=== PATIENT | male | born 1975 | race Caucasian/White ===

== ENCOUNTER 2020-08-22 16:48 | Observation (INO) | payer MEDICAID, OTHER ==
[2020-08-22] MEDS ORDERED: Aspirin Chewable 81 MG TAB ONE (17:18)
[2020-08-22] MEDS ORDERED: Nitroglycerin 2% Ointment 1 INCH/1 GM Packet ONE (17:19)
[2020-08-22 17:38] LABS: #Lymphocytes 1.1 thou/uL (1.20-3.40); #Monocytes 0.6 thou/uL (0.11-0.59); %Basophils 0.3 % (0.0-1.0); %Eosinophils 0.2 % (0.0-10.0); %Lymphocytes 8.8 % (21.0-51.0); %Monocytes 4.7 % (0.0-10.0); %Neutrophils 86.1 % (42.0-75.0); Hemoglobin 16.1 g/dL (14.0-18.0); Mean Corpuscular HGB CONC 35.3 g/dL (32.0-36.0); Mean Corpuscular Hemoglobin 31.1 pg (27.0-31.0); Mean Platelet Volume 7.9 fL (7.4-10.4); Platelet Count 330 thou/uL (130-400); RBC Distribution Width 12.2 % (11.5-14.5); White Blood Cell (WBC) Count 12.8 thou/uL (4.8-10.8)
[2020-08-22 17:57] LABS: ALT (SGPT) 60 U/L (8-55); AST (SGOT) 25 U/L (5-34); Albumin 4.8 g/dL (3.5-5.0); Alkaline Phosphatase 80 U/L (40-110); Anion Gap 17 mmol/L (10-20); BUN (Urea Nitrogen) 12 mg/dL (8.9-20.6); Bilirubin, Total 0.6 mg/dL (0.2-1.2); Calc. Creatinine Clearance 0 mL/min (70-130); Calcium 9.2 mg/dL (7.8-10.44); Carbon Dioxide 21 mmol/L (22-29); Chloride 102 mmol/L (98-107); Globulin 3.3 g/dL (2.4-3.5); Glucose 121 mg/dL (70-105); Lipase 19 U/L (8-78); Potassium 3.4 mmol/L (3.5-5.1); Protein, Total 8.1 g/dL (6.0-8.3); Sodium 137 mmol/L (136-145)
--- NOTE | 2020-08-22 17:57 | RAD ---
PORTABLE CHEST: History: Chest pain FINDINGS: Heart size and mediastinum are within normal limits. Lungs are clear of any infiltrative process. No bony findings. IMPRESSION: No active intrathoracic disease. POS: ALEX
[2020-08-22] MEDS ORDERED: Lorazepam 2 MG/ML VIAL ONE (18:37)
--- NOTE | 2020-08-22 19:21 | PDOC.HHP ---
Hospitalist HPI - History of Present Illness Chest pain History of Present Illness: Mr. Cannon is a 44-year-old male with past medical history of hypertension, anxiety and panic disorder who presents to the emergency room for evaluation of chest pain. Patient reports that approximately 5 days ago he picked up his prescription for lisinopril and found that the pills manufactured by different company. Patient states that since taking that pill he has had palpitations with elevated heart rate and high blood pressure. Patient reports that he will lay down to sleep and is unable to sleep because his heart is racing in his ears. Patient reports that yesterday he developed intermittent chest pain and pressure which felt like a tightness above his left chest extending down into his arm. Patient reports that the pain lasted seconds long and that he has not had pain like this in the past. Patient reports he has a history of anxiety disorder and his usual techniques to calm his anxiety have not been effective and that this pain feels different than a panic attack. Patient denies shortness of breath, headache, visual changes, dizziness. He denies numbness weakness or paresthesias. He denies abdominal pain, N/V/D, melena or hematochezia. Patient has a family history of coronary artery disease with his father who had an IL at age 65 and his grandfather who had a CABG at the age of 55. He is a non-smoker. In emergency room initial vital signs 136/89, 94, 18, 98% on room air. EKG showed normal sinus rhythm with nonspecific changes T wave flattening in V5 V6 with no ST changes. Chest x-ray with no acute findings. Initial troponin 0 0.010. BNP 10.0. BUN/CR 12/1.12. Sodium 137, potassium 3.4. H/H 16.1/45.7. White blood cell count 12.8. Patient received Ativan, Nitropaste, aspirin in the emergency room. Admitted to hospital service for further evaluation of his chest pain. Hospitalist ROS - Review of Systems Constitutional: denies: fever, chills, sweats, weakness, malaise, other Eyes: denies: pain, vision change, conjunctivae inflammation, eyelid inflammation, redness, other ENT: denies: ear pain, ear discharge, nose pain, nose discharge, nose congestio n, mouth pain, mouth swelling, throat pain, throat swelling, other Respiratory: denies: cough, dry, shortness of breath, hemoptysis, SOB with excertion, pleuritic pain, sputum, wheezing, other Cardiovascular: reports: chest pain, palpitations. denies: orthopnea, paroxysmal noc. dyspnea, edema, light headedness, other Gastrointestinal: denies: nausea, vomiting, abdominal pain, diarrhea, constipation, melena, hematochezia, other Genitourinary: denies: dysuria, frequency, incontinence, hematuria, retention, other Musculoskeletal: denies: neck pain, shoulder pain, arm pain, back pain, hand pain, leg pain, foot pain, other Skin: denies: rash, lesions, quoc, bruising, other Neurological: denies: weakness, numbness, incoordination, change in speech, confusion, seizures, other - Medication Medications: Home medications include Lisinopril Allergy to opioid medications Hospitalist History - Past Medical History Other Medical History: Physical history includes Hypertension Anxiety and panic disorder - Past Surgical History Other Surgical History: Past surgical history includes Appendectomy Orthopedic surgery to the right arm - Family History Other Family History: Family history significant for coronary artery disease in his father with an IL at age 65 and his grandfather with a CABG at age 55. - Social History Smoking Status: Never smoker Alcohol: reports: None Drugs: reports: marijuana (Rare use of marijuana, last use 3 months ago) Living Situation: With Family Activity level: independent ambulation - Exam General Appearance: NAD, awake alert General - other findings: Anxious Eye: PERRL, anicteric sclera ENT: normocephalic atraumatic, no oropharyngeal lesions, moist mucosa Neck: supple, symmetric, no JVD, no thyromegaly, no lymphadenopathy, no carotid bruit Heart: RRR, no murmur, no gallops, no rubs, normal peripheral pulses Respiratory: CTAB, no wheezes, no rales, no ronchi, normal chest expansion, no tachypnea, normal percussion Gastrointestinal: soft, non-tender, non-distended, normal bowel sounds, no palpable masses, no hepatomegaly, no splenomegaly, no bruit Extremities: no cyanosis, no clubbing, no edema Skin: normal turgor, no lesions, no rashes Neurological: cranial nerve grossly intact, normal sensation to touch, no weakness, no focal deficits, no new deficit Musculoskeletal: normal tone, normal strength, no muscle wasting Psychiatric: normal affect, normal behavior, A&O x 3 Hospitalist Results - Labs Result Diagrams: 08/23/20 04:01 08/23/20 04:01 Lab results: WBC 12.8 thou/uL (4.8-10.8) H 08/22/20 17:06 Hgb 16.1 g/dL (14.0-18.0) 08/22/20 17:06 Hct 45.7 % (42.0-52.0) 08/22/20 17:06 MCV 88.0 fL (78.0-98.0) 08/22/20 17:06 Plt Count 330 thou/uL (130-400) 08/22/20 17:06 Neutrophils % 86.1 % (42.0-75.0) H 08/22/20 17:06 Sodium 137 mmol/L (136-145) 08/22/20 17:06 Potassium 3.4 mmol/L (3.5-5.1) L 08/22/20 17:06 Chloride 102 mmol/L (98-107) 08/22/20 17:06 Carbon Dioxide 21 mmol/L (22-29) L 08/22/20 17:06 BUN 12 mg/dL (8.9-20.6) 08/22/20 17:06 Creatinine 1.12 mg/dL (0.7-1.3) 08/22/20 17:06 Glucose 121 mg/dL (70-105) H 08/22/20 17:06 Calcium 9.2 mg/dL (7.8-10.44) 08/22/20 17:06 Total Bilirubin 0.6 mg/dL (0.2-1.2) 08/22/20 17:06 AST 25 U/L (5-34) 08/22/20 17:06 ALT 60 U/L (8-55) H 08/22/20 17:06 Alkaline Phosphatase 80 U/L (40-110) 08/22/20 17:06 Troponin I Less than 0.010 ng/mL (< 0.028) 08/22/20 17:06 B-Natriuretic Peptide Less than 10.0 pg/mL (0-100) 08/22/20 17:06 Serum Total Protein 8.1 g/dL (6.0-8.3) 08/22/20 17:06 Albumin 4.8 g/dL (3.5-5.0) 08/22/20 17:06 Lipase 19 U/L (8-78) 08/22/20 17:06 Hospitalist H&P A/P - Plan Plan: Chest pain 44-year-old male with past medical history of hypertension, anxiety panic disorder presents with chest pain and palpitations. EKG with no ST changes, but nonspecific T wave flattening. Initial troponin 0 0.010. Chest x-ray no acute findings. Patient does have a family history of coronary artery disease. Patient received 325 mg of aspirin in the emergency room as well as Nitropaste. Will admit patient for telemetry monitoring and stress test in morning as long as troponins remain low. Plan Aspirin Telemetry monitoring, trend troponin TSH, magnesium, calcium N.p.o. at midnight for stress test Hypokalemia Potassium 3.4 on admission. Will replete and monitor as necessary. Hypertension Patient on lisinopril. We will continue home dose. Anxiety and panic disorder Patient has a history significant for anxiety and panic disorder. Suspect that patient's chest pain may be related to this, however will treat and evaluate as above. Patient is not currently on any anxiety medication and does report that this chest pain does feel different than his typical anxiety symptoms. Plan Ativan as needed DVT prophylaxisSCDs Full codeMDM is patient's Case discussed with attending physician, Dr. Pratt
[2020-08-22] MEDS ORDERED: Lorazepam 1 MG TAB PO PRN (19:39)
[2020-08-22] MEDS ORDERED: Aspirin 325 MG TAB PO SCH (19:45)
[2020-08-22] MEDS ORDERED: Potassium Chloride 20 MEQ TAB PO SCH (19:45)
[2020-08-22] MEDS ORDERED: Acetaminophen 325 MG TAB PO PRN (19:51)
[2020-08-22 19:57] LABS: Troponin I 0.018 ng/mL (< 0.028)
[2020-08-22 20:25] LABS: Hemoglobin A1c 5.3 % (4.0-6.0)
[2020-08-22 20:27] LABS: Calcium 8.6 mg/dL (7.8-10.44); Magnesium 2.2 mg/dL (1.6-2.6)
[2020-08-22] MEDS: Nitroglycerin 2% Ointment 1 INCH/1 GM Packet TOP SCH (21:03)
[2020-08-22 22:06] VITALS: BMI 28.8
[2020-08-22 23:39] LABS: Troponin I 0.027 ng/mL (< 0.028)
[2020-08-23 02:46] LABS: SARS-CoV-2 MS2 Positive; SARS-CoV-2 N Gene Negative; SARS-CoV-2 S Gene Negative; SARS-CoV-2 by NAA Not Detected (NotDetected); SARS-CoV-2 orf1ab Negative
[2020-08-23 05:19] LABS: #Eosinphils 0.1 thou/uL (0.0-0.7); #Lymphocytes 1.8 thou/uL (1.20-3.40); #Monocytes 0.9 thou/uL (0.11-0.59); #Neutrophils 8.8 thou/uL (1.40-6.50); %Basophils 0.3 % (0.0-1.0); %Eosinophils 0.6 % (0.0-10.0); %Lymphocytes 15.7 % (21.0-51.0); %Monocytes 7.5 % (0.0-10.0); %Neutrophils 75.9 % (42.0-75.0); Hemoglobin 14.3 g/dL (14.0-18.0); Mean Corpuscular HGB CONC 34.8 g/dL (32.0-36.0); Mean Corpuscular Hemoglobin 30.8 pg (27.0-31.0); Mean Corpuscular Volume 88.6 fL (78.0-98.0); Mean Platelet Volume 8.1 fL (7.4-10.4); Platelet Count 293 thou/uL (130-400); RBC Distribution Width 12.2 % (11.5-14.5); Red Blood Cell (RBC) Count 4.63 mill/uL (4.70-6.10); White Blood Cell (WBC) Count 11.6 thou/uL (4.8-10.8)
[2020-08-23 05:42] LABS: Anion Gap 15 mmol/L (10-20); BUN (Urea Nitrogen) 14 mg/dL (8.9-20.6); Calc. Creatinine Clearance 112 mL/min (70-130); Calcium 8.7 mg/dL (7.8-10.44); Carbon Dioxide 24 mmol/L (22-29); Cardiac Risk 5.4 (Less than 4.5); Chloride 103 mmol/L (98-107); Cholesterol 140 mg/dl (< 200 Desired); Glucose 93 mg/dL (70-105); HDL Cholesterol 26 mg/dL (>60 Neg Risk); LDL Cholesterol, Calculated 93 mg/dL; Sodium 138 mmol/L (136-145); Triglycerides 104 mg/dL (Less than 150)
[2020-08-23] MEDS: Nitroglycerin 2% Ointment 1 INCH/1 GM Packet TOP SCH ×2 (07:05→15:13)
[2020-08-23 07:19] VITALS: TEMP 98.4
[2020-08-23] MEDS ORDERED: Aspirin Chewable 81 MG TAB PO SCH (09:00)
[2020-08-23] MEDS ORDERED: Ketorolac Tromethamine 30 MG/ML VIAL IVP SCH (09:15)
--- NOTE | 2020-08-23 13:32 | NM ---
Radionucleotide stress and rest myocardial perfusion scan with CT attenuation correction and SPECT im aging Left ventricular wall motion evaluation and ejection fraction HISTORY: Chest pain. FINDINGS: Norberto protocol. Total test time 10:01. Homogeneous uptake of radiotracer throughout the left ventricular myocardium. No focal perfusion defe ct or reversibility. QGS analysis of gated SPECT images shows no focal wall motion abnormalities. TID 1.1. LHR 31%. Left ventricular ejection fraction calculated at 76%. IMPRESSION : No evidence of ischemia. Normal LVEF.
--- NOTE | 2020-08-23 14:20 | PDOC.DS.DS ---
Provider - Provider Date of Admission: 08/22/20 18:38 Date of Discharge: 08/23/20 Admitting Provider: Galina Pratt MD Primary Care Physician: Mt Wilson MD Course - Hospital Course Hospital Course: Discharge diagnosis: 1. Chest pain 2. Chest pain most likely secondary to musculoskeletal etiology Hospital course: Patient is a pleasant 39-year-old gentleman who was admitted to the hospital on August 22, 2020 for chest pain. Cardiac enzymes were normal. He had a nuclear stress test, which did not show any evidence of ischemia. Left ventricle ejection fraction was calculated at 76%. His chest pain resolved after he received Toradol. He is being discharged home in a stable condition. Pulmonary embolism was ruled out with a negative D-dimer prior to discharge. Many thanks for allowing me to participate in your patient's care. Please feel free to contact me with any questions or concerns. Discharge destination: Home - Labs Lab Results: 08/23/20 04:01 08/23/20 04:01 Abnormal Lab Results - Last 48 hrs 08/22/20 17:06: Potassium 3.4 L, Carbon Dioxide 21 L, ALT 60 H 08/22/20 17:06: WBC 12.8 H, MCH 31.1 H, Neutrophils % 86.1 H, Lymphocytes % 8.8 L, Neutrophils # 11.0 H, Lymphocytes # 1.1 L, Monocytes # 0.6 H 08/23/20 04:01: WBC 11.6 H, RBC 4.63 L, Hct 41.1 L, Neutrophils % 75.9 H, Lymphocytes % 15.7 L, Neutrophils # 8.8 H, Monocytes # 0.9 H - Physical Exam Vitals: Vital Signs (12 hours) Temp Pulse Resp BP Pulse Ox 08/23/20 07:15 98.4 F 61 16 167/81 H 97 08/23/20 03:21 98.8 F 65 18 129/69 99 Weight Weight 195 lb Physical Exam: The patient was seen and examined on the day of discharge. Patient denies chest pain or shortness of breath. Vital signs are stable. S1 and S2 are heard. Lungs are clear to auscultation bilaterally. Plan - Discharge Medications Home Medications: Medication Instructions Recorded Confirmed Type Lisinopril 20 mg PO DAILY 08/23/20 08/23/20 History Allergies: OPIATES Allergy (Uncoded 08/22/20 19:45) - Discharge Instructions Discharge Instructions:: Check your blood pressure and heart rate 3 times a day and shows readings to your primary care provider. - Follow up Plan Referrals: Mt Wilson MD [Primary Care Provider] - 3 Days (Please call the office to schedule a follow up appointment.) Disposition: HOME Quality - Care Measures CORE MEASURES:: N/A
[2020-08-23 15:41] VITALS: BP 140/71
[2020-08-24] MEDS ORDERED: Lisinopril 20 MG TAB PO SCH (09:00)
--- NOTE | 2020-08-28 10:08 | EKG ---
Test Reason : Blood Pressure : / mmHG Vent. Rate : 086 BPM Atrial Rate : 086 BPM P-R Int : 120 ms QRS Dur : 102 ms QT Int : 372 ms P-R-T Axes : 054 018 032 degrees QTc Int : 445 ms Normal sinus rhythm Nonspecific ST abnormality Abnormal ECG Confirmed by JAMES WAGNER, TROY Fitzpatrick ([id number]), acquisition editor ALEXANDRA العلي ([id number]) on 08/28/2020 10:07:50 AM Referred By: Confirmed By:TROY RAMIREZ MD
== END 2020-08-23 15:13 | disposition home or self-care (01) ==
LOC: ERS 16:48 → 2NO 18:38
PROVIDERS: ADMIT Internal Medicine; ATTEND Internal Medicine
DX: R07.89 Other chest pain (principal); I10 Essential (primary) hypertension; F41.0 Panic disorder [episodic paroxysmal anxiety]; F32.9 Major depressive disorder, single episode, unspecified; E87.6 Hypokalemia; Z79.899 Other long term (current) drug therapy; Z88.5 Allergy status to narcotic agent; Z20.822 Contact with and (suspected) exposure to COVID-19
CPT/HCPCS: 36415; 71045; 78452; 80048; 80053; 80061; 83036; 83690; 83735; 83880; 84443; 84484; 85025; 85379; 87635; 93005; 93010; 93017; 94760; 96374; A9500; G0378; J1885; J2060; U0003

== ENCOUNTER 2022-02-27 20:25 | Observation (INO) | payer OTHER ==
[2022-02-27 21:39] LABS: #Lymphocytes 1.5 thou/uL (1.20-3.40); #Monocytes 0.6 thou/uL (0.11-0.59); #Neutrophils 14.9 thou/uL (1.40-6.50); %Basophils 0.2 % (0.0-1.0); %Eosinophils 0.2 % (0.0-10.0); %Lymphocytes 8.6 % (21.0-51.0); %Monocytes 3.7 % (0.0-10.0); %Neutrophils 87.3 % (42.0-75.0); Hemoglobin 16.1 g/dL (14.0-18.0); Mean Corpuscular HGB CONC 32.9 g/dL (32.0-36.0); Mean Corpuscular Hemoglobin 30.5 pg (27.0-31.0); Mean Corpuscular Volume 92.8 fL (78.0-98.0); Mean Platelet Volume 8.5 fL (7.4-10.4); Platelet Count 283 thou/uL (130-400); RBC Distribution Width 13.1 % (11.5-14.5); Red Blood Cell (RBC) Count 5.26 mill/uL (4.70-6.10); White Blood Cell (WBC) Count 17.1 thou/uL (4.8-10.8)
[2022-02-27 22:02] LABS: ALT (SGPT) 36 U/L (8-55); AST (SGOT) 19 U/L (5-34); Albumin 4.9 g/dL (3.5-5.0); Alkaline Phosphatase 94 U/L (40-110); Anion Gap 17 mmol/L (10-20); BUN (Urea Nitrogen) 13 mg/dL (8.9-20.6); Bilirubin, Total 0.4 mg/dL (0.2-1.2); Calc. Creatinine Clearance 0 mL/min (70-130); Calcium 9.6 mg/dL (7.8-10.44); Carbon Dioxide 22 mmol/L (22-29); Chloride 104 mmol/L (98-107); Estimated GFR 86; Globulin 2.7 g/dL (2.4-3.5); Glucose 122 mg/dL (70-105); Lipase 24 U/L (8-78); Potassium 3.9 mmol/L (3.5-5.1); Protein, Total 7.6 g/dL (6.0-8.3); Sodium 139 mmol/L (136-145)
[2022-02-27] MEDS ORDERED: Aspirin Chewable 81 MG TAB ONE ×3 (22:12→22:13)
[2022-02-27] MEDS ORDERED: Acetaminophen 325 MG TAB PO PRN (23:01)
[2022-02-27] MEDS ORDERED: Ondansetron ODT 4 MG TAB PO PRN (23:01)
[2022-02-27] MEDS ORDERED: Nitroglycerin 0.4 MG TAB (25 Tab Bottle) SL PRN (23:12)
[2022-02-27] MEDS ORDERED: Aspirin 325 MG TAB PO SCH (23:15)
[2022-02-27 23:41] LABS: Hemoglobin A1c 5.3 % (4.0-6.0)
[2022-02-28 02:04] LABS: Troponin I Less than 0.010 ng/mL (< 0.028)
[2022-02-28 05:47] LABS: Troponin I Less than 0.010 ng/mL (< 0.028)
[2022-02-28 07:26] LABS: Cardiac Risk 5.1 (Less than 4.5)
[2022-02-28 07:59] VITALS: BMI 29.2
[2022-02-28] MEDS ORDERED: Aspirin Chewable 81 MG TAB PO SCH (09:00)
[2022-02-28] MEDS ORDERED: Lisinopril 20 MG TAB PO SCH (09:00)
[2022-02-28] MEDS ORDERED: Midazolam HCl 2 mg/2 ml Vial SLOW IVP SCH (09:15)
[2022-02-28 16:51] VITALS: BP 158/70; TEMP 97.3
== END 2022-02-28 16:45 | disposition home or self-care (01) ==
LOC: ERS 20:25 → ERHOLD 22:41 → 2SW 02-28 07:51
PROVIDERS: ADMIT Student in an Organized Health Care Education/Training Program; ATTEND Student in an Organized Health Care Education/Training Program
DX: I20.8 Other forms of angina pectoris (principal); I10 Essential (primary) hypertension; Z79.899 Other long term (current) drug therapy; Z82.49 Family history of ischemic heart disease and other diseases of the circulatory system; Z88.5 Allergy status to narcotic agent
CPT/HCPCS: 36415; 71045; 78452; 80053; 80061; 83036; 83690; 83880; 84443; 84484; 85025; 93005; 93017; A9500; G0378; U0003; U0005

== ENCOUNTER 2023-06-22 15:06 | Inpatient (IN) | payer OTHER, SELFPAY ==
[2023-06-22 15:48] LABS: Bilirubin Negative (Negative); Blood, Urine Negative (Negative); Clarity Clear (Clear); Glucose, Urine (Dipstick) Normal (Negative); Ketone, Urine Negative (Negative); Leukocyte Negative Leu/uL (Negative); Nitrite Negative (Negative); Protein, Urine (Dipstick) Negative (Neg-Trace); Specific Gravity, Urine 1.011 (1.002-1.036); Urobilinogen Normal mg/dL (Less than 2); pH, Urine 5.5 (5.0-9.0)
[2023-06-22] MEDS ORDERED: Ketorolac Tromethamine 30 MG/ML VIAL ONE (15:56)
[2023-06-22 16:01] LABS: Mucous/LPF 1+ LPF (<2+); RBC/HPF None Seen HPF (0-3); Squamous Epithelial 0-3 HPF (0-3)
[2023-06-22 16:02] LABS: Urine Culture Reflex No No
[2023-06-22 16:32] LABS: #Monocytes 0.6 thou/uL (0.11-0.59); #Neutrophils 10.6 thou/uL (1.40-6.50); %Basophils 0.3 % (0.0-1.0); %Eosinophils 0.1 % (0.0-10.0); %Lymphocytes 9.8 % (21.0-51.0); %Neutrophils 84.5 % (42.0-75.0); Hematocrit 42.7 % (42.0-52.0); Hemoglobin 15.7 g/dL (14.0-18.0); Mean Corpuscular HGB CONC 36.8 g/dL (32.0-36.0); Mean Corpuscular Hemoglobin 30.5 pg (27.0-31.0); Mean Corpuscular Volume 82.9 fl (78.0-98.0); Mean Platelet Volume 10.7 fL (7.4-10.4); Platelet Count 312 10x3/uL (130-400); RBC Distribution Width 12.3 % (11.5-14.5); Red Blood Cell (RBC) Count 5.15 mill/uL (4.70-6.10); White Blood Cell (WBC) Count 12.5 10x3/uL (4.8-10.8)
[2023-06-22] MEDS ORDERED: Sodium Chloride 0.9% 100 ML ONE (16:40)
[2023-06-22] MEDS ORDERED: cefTRIAXone (ROCEPHIN) 2 GM VIAL ONE (16:40)
[2023-06-22 17:09] LABS: ALT (SGPT) 36 U/L (8-55); AST (SGOT) 17 U/L (5-34); Albumin 5.1 g/dL (3.5-5.0); Alkaline Phosphatase 78 U/L (40-110); Anion Gap 17 mmol/L (10-20); BUN (Urea Nitrogen) 10 mg/dL (8.9-20.6); Bilirubin, Total 0.7 mg/dL (0.2-1.2); Calc. Creatinine Clearance 0 mL/min (70-130); Calcium 9.4 mg/dL (7.8-10.44); Carbon Dioxide 17 mmol/L (22-29); Chloride 105 mmol/L (98-107); Estimated GFR 78; Globulin 2.3 g/dL (2.4-3.5); Glucose 122 mg/dL (70-105); Potassium 3.4 mmol/L (3.5-5.1); Protein, Total 7.4 g/dL (6.0-8.3); Sodium 136 mmol/L (136-145)
[2023-06-22] MEDS ORDERED: Ondansetron ODT 4 MG TAB PO PRN (17:22)
[2023-06-22] MEDS ORDERED: HYDROcodone/Acetaminophen 5/325 mg Tablet PO PRN (17:22)
[2023-06-22] MEDS ORDERED: Sodium Chloride 0.9% 1,000 ML IV SCH ×3 (17:30→19:55)
[2023-06-22] MEDS ORDERED: LORazepam 2 MG/ML SYR.(CARPUJECT) ONE (17:46)
[2023-06-22] MEDS ORDERED: Potassium Chloride 20 MEQ TAB PO SCH (18:15)
[2023-06-22 18:23] LABS: #Monocytes 0.7 thou/uL (0.11-0.59); #Neutrophils 10.3 thou/uL (1.40-6.50); %Basophils 0.3 % (0.0-1.0); %Lymphocytes 9.7 % (21.0-51.0); %Monocytes 5.4 % (0.0-10.0); %Neutrophils 84.2 % (42.0-75.0); Hemoglobin 13.3 g/dL (14.0-18.0); Mean Corpuscular HGB CONC 35.9 g/dL (32.0-36.0); Mean Corpuscular Hemoglobin 30.5 pg (27.0-31.0); Mean Corpuscular Volume 84.9 fl (78.0-98.0); Mean Platelet Volume 10.4 fL (7.4-10.4); Platelet Count 265 10x3/uL (130-400); RBC Distribution Width 12.3 % (11.5-14.5); Red Blood Cell (RBC) Count 4.36 mill/uL (4.70-6.10); White Blood Cell (WBC) Count 12.3 10x3/uL (4.8-10.8)
[2023-06-22 18:48] LABS: Magnesium 1.6 mg/dL (1.6-2.6)
[2023-06-22 18:52] LABS: ALT (SGPT) 30 U/L (8-55); AST (SGOT) 14 U/L (5-34); Albumin 4.2 g/dL (3.5-5.0); Alkaline Phosphatase 60 U/L (40-110); Anion Gap 15 mmol/L (10-20); BUN (Urea Nitrogen) 10 mg/dL (8.9-20.6); Bilirubin, Total 0.5 mg/dL (0.2-1.2); Calc. Creatinine Clearance 0 mL/min (70-130); Carbon Dioxide 18 mmol/L (22-29); Chloride 109 mmol/L (98-107); Estimated GFR 88; Globulin 1.7 g/dL (2.4-3.5); Glucose 94 mg/dL (70-105); Potassium 3.4 mmol/L (3.5-5.1); Protein, Total 5.9 g/dL (6.0-8.3); Sodium 139 mmol/L (136-145)
[2023-06-22 19:44] LABS: Lactic Acid 2.9 mmol/L (0.5-2.2)
[2023-06-22] MEDS ORDERED: Magnesium 2 GM/50 ML(in water) 2 GM in Premix 1 BAG IVPB SCH (20:00)
[2023-06-22 20:29] VITALS: BMI 29.3
[2023-06-22] MEDS ORDERED: Sodium Chloride 0.9% 500 ML IV SCH (20:30)
[2023-06-22] MEDS: Famotidine 20 MG TAB PO SCH (20:32)
[2023-06-22] MEDS ORDERED: Heparin 5,000 UNITS/ML VIAL SC SCH (21:00)
[2023-06-22] MEDS ORDERED: Lisinopril 20 MG TAB PO SCH (21:00)
[2023-06-22] MEDS ORDERED: hydrALAZINE 20 MG/ML VIAL SLOW IVP PRN (21:12)
[2023-06-22 21:33] LABS: Hemoglobin A1c 5.7 % (4.0-6.0)
[2023-06-22] MEDS: Sodium Chloride 0.9% 1,000 ML IV SCH (21:39)
[2023-06-23] MEDS: Ketorolac Tromethamine 30 MG/ML VIAL IVP PRN ×3 (02:16→23:46)
[2023-06-23] MEDS: Sodium Chloride 0.9% 1,000 ML IV SCH ×3 (05:59→17:59)
[2023-06-23 06:41] LABS: #Monocytes 0.5 thou/uL (0.11-0.59); #Neutrophils 3.7 thou/uL (1.40-6.50); %Basophils 0.6 % (0.0-1.0); %Eosinophils 0.6 % (0.0-10.0); %Lymphocytes 33.8 % (21.0-51.0); %Neutrophils 56.7 % (42.0-75.0); Hematocrit 36.3 % (42.0-52.0); Hemoglobin 12.4 g/dL (14.0-18.0); Mean Corpuscular HGB CONC 34.2 g/dL (32.0-36.0); Mean Corpuscular Hemoglobin 30.2 pg (27.0-31.0); Mean Platelet Volume 11.2 fL (7.4-10.4); Platelet Count 236 10x3/uL (130-400); RBC Distribution Width 12.8 % (11.5-14.5); Red Blood Cell (RBC) Count 4.11 mill/uL (4.70-6.10); White Blood Cell (WBC) Count 6.5 10x3/uL (4.8-10.8)
[2023-06-23 06:42] LABS: Mean Corpuscular Volume 88.3 fl (78.0-98.0)
[2023-06-23 07:19] LABS: ALT (SGPT) 21 U/L (8-55); AST (SGOT) 11 U/L (5-34); Albumin 3.8 g/dL (3.5-5.0); Alkaline Phosphatase 53 U/L (40-110); Anion Gap 10 mmol/L (10-20); BUN (Urea Nitrogen) 9 mg/dL (8.9-20.6); Bilirubin, Total 0.4 mg/dL (0.2-1.2); Calc. Creatinine Clearance 136 mL/min (70-130); Calcium 7.9 mg/dL (7.8-10.44); Carbon Dioxide 19 mmol/L (22-29); Chloride 115 mmol/L (98-107); Estimated GFR 107; Globulin 1.5 g/dL (2.4-3.5); Glucose 71 mg/dL (70-105); Protein, Total 5.3 g/dL (6.0-8.3); Sodium 140 mmol/L (136-145)
[2023-06-23] MEDS: Aspirin Chewable 81 MG TAB PO SCH (09:21)
[2023-06-23] MEDS: Heparin 5,000 UNITS/ML VIAL SC SCH ×2 (09:21→21:21)
[2023-06-23] MEDS: Famotidine 20 MG TAB PO SCH ×2 (09:21→21:00)
[2023-06-23 09:55] LABS: GC N.gonorrhoeae PCR,UrineVOID Not Detected (NotDetected)
[2023-06-23] MEDS ORDERED: cefTRIAXone\\ROCEPHIN 2 GM in Sodium Chloride 0.9% 100 ML IVPB SCH (16:00)
[2023-06-23] MEDS ORDERED: cefTRIAXone\\ROCEPHIN 1 GM in Sodium Chloride 0.9% 100 ML IVPB SCH (16:00)
[2023-06-23] MEDS: Acetaminophen 325 MG TAB PO PRN (16:08)
[2023-06-24] MEDS: Sodium Chloride 0.9% 1,000 ML IV SCH ×3 (01:38→17:24)
[2023-06-24 06:50] LABS: #Eosinphils 0.1 thou/uL (0.0-0.7); #Monocytes 0.3 thou/uL (0.11-0.59); #Neutrophils 2.5 thou/uL (1.40-6.50); %Basophils 0.9 % (0.0-1.0); %Eosinophils 1.1 % (0.0-10.0); %Lymphocytes 35.5 % (21.0-51.0); %Neutrophils 55.3 % (42.0-75.0); Hematocrit 35.5 % (42.0-52.0); Mean Corpuscular HGB CONC 33.8 g/dL (32.0-36.0); Mean Corpuscular Hemoglobin 30.2 pg (27.0-31.0); Mean Corpuscular Volume 89.4 fl (78.0-98.0); Platelet Count 222 10x3/uL (130-400); Red Blood Cell (RBC) Count 3.97 mill/uL (4.70-6.10); White Blood Cell (WBC) Count 4.5 10x3/uL (4.8-10.8)
[2023-06-24 07:14] LABS: Anion Gap 9 mmol/L (10-20); BUN (Urea Nitrogen) 6 mg/dL (8.9-20.6); Calc. Creatinine Clearance 146 mL/min (70-130); Calcium 8.4 mg/dL (7.8-10.44); Carbon Dioxide 21 mmol/L (22-29); Chloride 116 mmol/L (98-107); Estimated GFR 110; Glucose 81 mg/dL (70-105); Potassium 3.9 mmol/L (3.5-5.1); Sodium 142 mmol/L (136-145)
[2023-06-24] MEDS ORDERED: Ibuprofen 600 MG TAB PO PRN (09:31)
[2023-06-24] MEDS: Aspirin Chewable 81 MG TAB PO SCH (10:15)
[2023-06-24] MEDS: Famotidine 20 MG TAB PO SCH ×2 (10:15→20:12)
[2023-06-24] MEDS: Heparin 5,000 UNITS/ML VIAL SC SCH ×2 (10:15→19:49)
[2023-06-24] MEDS: Ketorolac Tromethamine 30 MG/ML VIAL IVP SCH ×3 (10:30→23:25)
[2023-06-24] MEDS: Cefepime 2 GM in Sodium Chloride 0.9% 100 ML IVPB SCH ×2 (14:00→23:25)
[2023-06-24] MEDS: Lorazepam 1 MG TAB PO PRN (23:25)
[2023-06-24] MEDS: Acetaminophen 325 MG TAB PO PRN (23:26)
[2023-06-25] MEDS: Sodium Chloride 0.9% 1,000 ML IV SCH ×3 (05:21→20:54)
[2023-06-25] MEDS: Ketorolac Tromethamine 30 MG/ML VIAL IVP SCH ×2 (05:21→12:02)
[2023-06-25] MEDS: Famotidine 20 MG TAB PO SCH ×2 (08:43→20:51)
[2023-06-25] MEDS: Aspirin Chewable 81 MG TAB PO SCH (08:43)
[2023-06-25 09:13] LABS: #Eosinphils 0.1 thou/uL (0.0-0.7); #Monocytes 0.4 thou/uL (0.11-0.59); #Neutrophils 2.9 thou/uL (1.40-6.50); %Basophils 0.6 % (0.0-1.0); %Eosinophils 1.2 % (0.0-10.0); %Lymphocytes 33.7 % (21.0-51.0); %Monocytes 6.9 % (0.0-10.0); %Neutrophils 57.4 % (42.0-75.0); Hemoglobin 12.3 g/dL (14.0-18.0); Mean Corpuscular HGB CONC 34.2 g/dL (32.0-36.0); Mean Corpuscular Hemoglobin 30.1 pg (27.0-31.0); Mean Corpuscular Volume 88.2 fl (78.0-98.0); Mean Platelet Volume 11.1 fL (7.4-10.4); Platelet Count 214 10x3/uL (130-400); RBC Distribution Width 12.8 % (11.5-14.5); Red Blood Cell (RBC) Count 4.08 mill/uL (4.70-6.10); White Blood Cell (WBC) Count 5.1 10x3/uL (4.8-10.8)
[2023-06-25 10:13] LABS: Anion Gap 15 mmol/L (10-20); BUN (Urea Nitrogen) 6 mg/dL (8.9-20.6); Calc. Creatinine Clearance 148 mL/min (70-130); Calcium 8.5 mg/dL (7.8-10.44); Carbon Dioxide 15 mmol/L (22-29); Estimated GFR 110; Glucose 75 mg/dL (70-105)
[2023-06-25] MEDS: Heparin 5,000 UNITS/ML VIAL SC SCH ×2 (10:13→20:57)
[2023-06-25] MEDS: Cefepime 2 GM in Sodium Chloride 0.9% 100 ML IVPB SCH ×2 (12:02→23:11)
[2023-06-25] MEDS: Acetaminophen 325 MG TAB PO PRN ×2 (12:03→20:51)
[2023-06-25 13:10] LABS: Chloride 114 mmol/L (98-107); Sodium 140 mmol/L (136-145)
[2023-06-25] MEDS: Methocarbamol 500 MG TAB PO SCH ×2 (15:09→20:57)
[2023-06-25] MEDS: Lorazepam 1 MG TAB PO PRN (23:10)
[2023-06-26] MEDS: Sodium Chloride 0.9% 1,000 ML IV SCH ×2 (04:58→13:52)
[2023-06-26 05:00] LABS: #Eosinphils 0.1 thou/uL (0.0-0.7); #Monocytes 0.5 thou/uL (0.11-0.59); #Neutrophils 3.5 thou/uL (1.40-6.50); %Basophils 0.7 % (0.0-1.0); %Eosinophils 1.7 % (0.0-10.0); %Lymphocytes 28.6 % (21.0-51.0); %Monocytes 7.9 % (0.0-10.0); %Neutrophils 60.8 % (42.0-75.0); Hematocrit 35.4 % (42.0-52.0); Mean Corpuscular HGB CONC 33.9 g/dL (32.0-36.0); Mean Corpuscular Hemoglobin 29.9 pg (27.0-31.0); Mean Corpuscular Volume 88.3 fl (78.0-98.0); Platelet Count 219 10x3/uL (130-400); RBC Distribution Width 12.6 % (11.5-14.5); Red Blood Cell (RBC) Count 4.01 mill/uL (4.70-6.10); White Blood Cell (WBC) Count 5.7 10x3/uL (4.8-10.8)
[2023-06-26 05:29] LABS: Anion Gap 13 mmol/L (10-20); BUN (Urea Nitrogen) 7 mg/dL (8.9-20.6); Calc. Creatinine Clearance 156 mL/min (70-130); Calcium 8.3 mg/dL (7.8-10.44); Carbon Dioxide 18 mmol/L (22-29); Chloride 114 mmol/L (98-107); Estimated GFR 112; Glucose 74 mg/dL (70-105); Potassium 3.9 mmol/L (3.5-5.1); Sodium 141 mmol/L (136-145)
[2023-06-26] MEDS: Methocarbamol 500 MG TAB PO SCH ×2 (08:43→14:36)
[2023-06-26] MEDS: Heparin 5,000 UNITS/ML VIAL SC SCH (08:43)
[2023-06-26] MEDS: Aspirin Chewable 81 MG TAB PO SCH (09:16)
[2023-06-26] MEDS: Famotidine 20 MG TAB PO SCH (09:16)
[2023-06-26] MEDS: Cefepime 2 GM in Sodium Chloride 0.9% 100 ML IVPB SCH (13:45)
[2023-06-26 18:25] VITALS: BP 156/79; TEMP 98.5
[2023-06-27 12:37] LABS: Total PSA Less than 0.1 ng/mL (0.0-4.0)
== END 2023-06-26 18:29 | disposition home or self-care (01) | DRG 690 ==
LOC: ERS 15:06 → T4-A 17:26 → OBSVTOIN 17:26
PROVIDERS: ADMIT Internal Medicine; ATTEND Family Medicine
DX: N39.0 Urinary tract infection, site not specified (principal); E87.20 Acidosis, unspecified; R10.9 Unspecified abdominal pain; F41.9 Anxiety disorder, unspecified; D35.02 Benign neoplasm of left adrenal gland; D72.829 Elevated white blood cell count, unspecified; D64.9 Anemia, unspecified; N28.1 Cyst of kidney, acquired; I10 Essential (primary) hypertension; K42.9 Umbilical hernia without obstruction or gangrene; Z88.5 Allergy status to narcotic agent; Z79.82 Long term (current) use of aspirin; Z79.899 Other long term (current) drug therapy; Z90.49 Acquired absence of other specified parts of digestive tract; Z80.42 Family history of malignant neoplasm of prostate; Z98.890 Other specified postprocedural states
CPT/HCPCS: 36415; 36416; 74176; 74178; 76856; 80048; 80053; 81001; 83036; 83605; 83735; 83880; 84145; 84153; 84154; 85025; 87040; 87086; 87591; 96361; 96365; 96375; J0692; J0696; J1885; J2060; J3475; J3490; J7030; J7050

== ENCOUNTER 2023-06-26 23:15 | Emergency (ER) | payer SELFPAY ==
[2023-06-27] MEDS ORDERED: Ibuprofen 800 MG TAB ONE (00:37)
[2023-06-27 00:40] LABS: Bacteria/HPF None Seen HPF (None Seen); Bilirubin Negative (Negative); Blood, Urine Negative (Negative); CAUTI Indications for Culture Dysuria,urgency,freq; Clarity Clear (Clear); Glucose, Urine (Dipstick) Normal (Negative); Ketone, Urine Trace mg/dL (Negative); Leukocyte Negative Leu/uL (Negative); Nitrite Negative (Negative); Protein, Urine (Dipstick) Negative (Neg-Trace); RBC/HPF 0-3 HPF (0-3); Specific Gravity, Urine 1.014 (1.002-1.036); Squamous Epithelial None Seen HPF (0-3); Urobilinogen Normal mg/dL (Less than 2); WBC/HPF 0-3 HPF (0-3)
[2023-06-27 00:45] LABS: Urine Culture Reflex No No
[2023-06-27] MEDS ORDERED: Aspirin Chewable 81 MG TAB ONE (02:14)
[2023-06-27] MEDS ORDERED: Ciprofloxacin 500 MG TAB ONE (02:14)
[2023-06-27 03:27] LABS: Troponin I Less than 0.010 ng/mL (< 0.028)
[2023-06-27 16:13] LABS: Chlam.trachomatis by PCR,Urine Not Detected (NotDetected); GC N.gonorrhoeae PCR,UrineVOID Not Detected (NotDetected)
== END 2023-06-27 03:46 | disposition home or self-care (01) ==
LOC: ERS 23:15
DX: N41.9 Inflammatory disease of prostate, unspecified (principal); I10 Essential (primary) hypertension; Z79.899 Other long term (current) drug therapy
CPT/HCPCS: 81001; 84484; 87491; 87591; 93005

== ENCOUNTER 2023-06-27 11:40 | Emergency (ER) | payer SELFPAY ==
[~2023-06-27 11:40] MED LIST: Iopamidol-370 76% 500 ML MDV (1 ML CHARGE) ONE
[2023-06-27] MEDS ORDERED: Aspirin Chewable 81 MG TAB ONE (12:00)
[2023-06-27] MEDS ORDERED: LORazepam 2 MG/ML SYR.(CARPUJECT) ONE ×2 (12:14→14:02)
[2023-06-27 12:16] LABS: #Monocytes 0.5 thou/uL (0.11-0.59); #Neutrophils 8.4 thou/uL (1.40-6.50); %Basophils 0.3 % (0.0-1.0); %Eosinophils 0.1 % (0.0-10.0); %Lymphocytes 13.6 % (21.0-51.0); %Neutrophils 80.7 % (42.0-75.0); Hematocrit 39.9 % (42.0-52.0); Hemoglobin 14.1 g/dL (14.0-18.0); Mean Corpuscular HGB CONC 35.3 g/dL (32.0-36.0); Mean Corpuscular Hemoglobin 29.9 pg (27.0-31.0); Mean Corpuscular Volume 84.7 fl (78.0-98.0); Mean Platelet Volume 10.8 fL (7.4-10.4); Platelet Count 289 10x3/uL (130-400); RBC Distribution Width 12.5 % (11.5-14.5); Red Blood Cell (RBC) Count 4.71 mill/uL (4.70-6.10); White Blood Cell (WBC) Count 10.4 10x3/uL (4.8-10.8)
[2023-06-27 12:44] LABS: Troponin I Less than 0.010 ng/mL (< 0.028)
[2023-06-27 13:09] LABS: ALT (SGPT) 25 U/L (8-55); AST (SGOT) 14 U/L (5-34); Albumin 4.8 g/dL (3.5-5.0); Alkaline Phosphatase 62 U/L (40-110); Anion Gap 19 mmol/L (10-20); BUN (Urea Nitrogen) 6 mg/dL (8.9-20.6); Bilirubin, Total 0.6 mg/dL (0.2-1.2); Calc. Creatinine Clearance 0 mL/min (70-130); Calcium 9.6 mg/dL (7.8-10.44); Carbon Dioxide 20 mmol/L (22-29); Chloride 108 mmol/L (98-107); Estimated GFR 109; Globulin 2.2 g/dL (2.4-3.5); Glucose 95 mg/dL (70-105); Lipase 14 U/L (8-78); Magnesium 2.1 mg/dL (1.6-2.6); Potassium 3.7 mmol/L (3.5-5.1); Sodium 143 mmol/L (136-145)
[2023-06-27 15:23] LABS: Troponin I Less than 0.010 ng/mL (< 0.028)
== END 2023-06-27 16:17 | disposition home or self-care (01) ==
LOC: ERS 11:40
DX: R07.89 Other chest pain (principal); F43.0 Acute stress reaction; I10 Essential (primary) hypertension; Z79.899 Other long term (current) drug therapy
CPT/HCPCS: 36415; 71045; 71275; 80053; 83690; 83735; 85025; 93005; 96374; 96376; J2060; Q9967